=== PATIENT | female | born 2000 | race Two or more races ===

== ENCOUNTER 2024-09-12 14:00 | Outpatient (CLI) | payer OTHER | END 2024-09-12 14:15 | disposition home or self-care (01) | LOC: PPH VACUNA 14:00 | PROVIDERS: ATTEND Emergency Medicine Pediatric Emergency Medicine | DX: Z23 Encounter for immunization (principal) ==

== ENCOUNTER 2025-01-12 09:06 | Outpatient (CLI) | payer OTHER | END 2025-01-12 09:10 | disposition home or self-care (01) | LOC: SONOGRAMA 09:06 | PROVIDERS: ATTEND Obstetrics & Gynecology | DX: R10.2 Pelvic and perineal pain (principal) ==